=== PATIENT | female | born 1995 | race Caucasian/White ===

== ENCOUNTER 2023-04-13 09:18 | Emergency (ER) | payer MEDICAID, SELFPAY ==
[2023-04-13 09:20] VITALS: BP 134/85; PULSE 95; RESP 16; TEMP 36.6; O2SAT 98; BMI 23.3
--- NOTE | 2023-04-13 09:31 | EKG12_ITS ---
Test Reason : SYNCOPE Blood Pressure : / mmHG Vent. Rate : 081 BPM Atrial Rate : 081 BPM P-R Int : 118 ms QRS Dur : 088 ms QT Int : 374 ms P-R-T Axes : 079 080 064 degrees QTc Int : 434 ms Normal sinus rhythm Normal ECG Confirmed by BLAKE SINGH, NAKUL ([id number]), supervising film or videotape editor HOUSTON LEE ([id number]) on 04/18/2023 8:16:07 AM Referred By: Confirmed By:MASOUD LOZANO MD
--- NOTE | 2023-04-13 09:35 | EX.ED.DYSGE1 ---
HPI History of Present Illness Chief Complaint: Syncope Informant: patient and spouse/S.O. Narrative Narrative: ED per private vehicle with significant other syncopal episode occurring 5:30 AM this morning. She got out bed felt lightheaded and passed out. There is no chest pains. She vomited twice since. No current nausea. No recent diarrhea. Last menstrual period was ago. Similar symptoms she found she was anemic when she was in high school. She was on iron supplements however stopped taking them due to side effects. No bloody stools. Denies urinary symptoms. Denies recent illness or cough. Prior similar symptoms: Yes PFSH [facility] Medical History (Updated 04/13/23 @ 10:[address] Adrien Lau DO) Anxiety PTSD (post-traumatic stress disorder) Home Medications ferrous sulfate 325 mg (65 mg iron) tablet 325 mg PO DAILY #30 tabs 04/13/23 [Rx Last Taken Unknown] ondansetron 4 mg disintegrating tablet 4 mg PO Q8H PRN PRN Nausea #10 tabs 04/13/23 [Rx Last Taken Unknown] Allergy/AdvReac Type Severity Reaction Status Date / Time MUSHROOMS Allergy Severe Anaphylaxis Uncoded 04/13/23 09:22 Social History Smoking Status: Never smoker ROS ROS ED Constitutional Constitutional ED: Denies chills, fever(s) or sweats Eyes Eyes: Denies change in vision ENT ENT ED: Denies dysphagia or sore throat Cardiovascular Cardiovascular: Reports other Details: syncope ; Denies chest pain, leg edema, palpitations or racing heartbeat Respiratory/Chest Respiratory/Chest: Denies cough, dyspnea or dyspnea on exertion Gastrointestinal Gastrointestinal: Denies abdominal pain, diarrhea, nausea or vomiting Genitourinary Genitourinary ED: Denies dysuria, hematuria or urinary frequency Musculoskeletal Musculoskeletal: Denies back pain, extremity pain or neck pain Integumentary Denies rash or wounds Neurologic Neurologic: Denies headache(s), paresthesias or weakness EXAM Physical Exam Const Vital Signs: 04/13/23 09:20 Temperature 97.9 F Temperature Source Temporal Pulse Rate 95 Respiratory Rate 16 Blood Pressure 134/85 H Blood Pressure Mean 101 Pulse Ox 98 Oxygen Delivery Method Room Air Positive well nourished and well developed General Appearance ED: well developed and NAD HEENT Reports moist mucous membranes normocephalic and atraumatic Eyes PERRL, EOMs intact bilaterally and conjunctivae normal General Eye ED: Yes normal appearance of both eyes Neck no lymphadenopathy and supple General: Negative for tenderness Chest Wall Chest: Negative for tenderness Resp normal respiratory effort and normal air movement Effort and Inspection: symmetric chest movement; Negative for respiratory distress Cardio regular rate, regular rhythm and no murmurs Peripheral Pulses: pulses 2+ throughout GI normal to inspection, nondistended, normoactive bowel sounds and non-tender Palpation: Negative for guarding or rebound tenderness present Back/Spine no CVA tenderness and no thoracic nor lumbar tenderness Extremity normal to inspection General Extremety ED: Negative for edema or tenderness General Extremity: Negative for edema Neuro oriented x3 and no sensory deficits noted Sensorium / Orientation: awake and alert Skin no rashes or lesions noted and no wounds MDM MDM MDM Narrative Medical decision making narrative: Interventions / MDM: Differential diagnosis: Syncope, nausea and vomiting, electrolyte abnormalities, anemia Diagnosis considered but do not suspect: Pulmonary embolism, however PERC criteria negative. My EKG interpretation: Sinus rate of 81, no ST or T wave changes, QTc 434. Imaging independently reviewed and interpreted by myself: N/A External documents reviewed: N/A Test considered but not ordered:N/A ED course: Patient no focal neurologic deficits. Vital signs stable. No significant pallor on exam. History of anemia currently not on iron. EKG sinus rhythm no acute findings. Basic laboratories obtained, IV fluids due to recent vomiting. Laboratory studies hemoglobin 10.1 slightly low MCV consistent with her iron deficiency history. Electrolytes are normal. hCG negative. Stable on reevaluation. No current PCP. Swelling restart iron supplements. Prescription for month supply for daily. Prescription for Zofran to use as needed. Outpatient follow-up given. Return precautions. All questions were answered. Re-evaluation: stable Disposition discussed with patient/family/significant other: Patient and significant other Case discussed with consulting clinician: N/A This note was generated with [employer] dictation software. It may contain incorrect words, spelling, and punctuation that were not noted in checking the note before signing. Lab Data Attestation: I reviewed the patient's lab results. Labs: Laboratory Results - last 24 hr 04/13/23 09:35 WBC 5.5 RBC 4.44 Hgb 10.1 L Hct 33.1 L MCV 74.5 L MCH 22.7 L MCHC 30.5 L RDW Std Deviation 48.4 H RDW Coeff of Edgar 18.1 H Plt Count 216 MPV 10.7 Immature Gran % (Auto) 0.400 Neut % (Auto) 63.0 Lymph % (Auto) 25.0 Shelby % (Auto) 7.2 Eos % (Auto) 3.3 Baso % (Auto) 1.1 H Absolute Neuts (auto) 3.4 Absolute Lymphs (auto) 1.36 Nucleated RBC % 0 Sodium 139 Potassium 4.1 Chloride 105 Carbon Dioxide 28.0 Anion Gap 6 BUN 14 Creatinine 0.86 Estim Creat Clear Calc 85.60 Est GFR (MDRD) Af Amer 102 Est GFR (MDRD) Non-Af 85 BUN/Creatinine Ratio 16.3 Glucose 102 Calcium 9.2 Serum , Qual NEGATIVE Discharge Plan Triage Chief Complaint: Syncope ED Provider: Adrien Lau Dx/Rx/DC Orders Clinical Impression: Anemia, Syncope, Nausea & vomiting Instructions: Anemia, Causes of Syncope, ED Vomiting (Adult) Prescriptions: New ondansetron [ondansetron] 4 mg tablet,disintegrating 4 mg PO Q8H PRN PRN (Reason: Nausea) Qty: 10 0RF ferrous sulfate 325 mg (65 mg iron) tablet 325 mg PO DAILY Qty: 30 0RF Stand Alone Forms: ED Work / School Excuse Primary Care Provider: Care Physician,No Primary Referrals: Steph Meza MD [Med Staff - [employer] Supervisor] - 1-2 Weeks Care Physician,No Primary [Primary Care Provider] - Activity Restrictions/Additional Instructions: EKG normal lab work hemoglobin 10.1. Take iron supplements as prescribed. I understand your stools will be black and can cause constipation. Increase your fibers. Drink plenty of fluids. Follow-up was given as an outpatient. Return of any recurrent or worsening symptoms. Disposition Disposition: Home, Self Care
--- NOTE | 2023-04-13 09:38 | NURSING ---
NO OLD EKGS
[2023-04-13] MEDS: 0.9% Normal Saline 1,000 ML 1000 ML IV (09:48)
[2023-04-13 09:50] LABS: Absolute Lymphocyte Count 1.36 X10^3/uL (0.83-4.51); Absolute Neutrophil Count 3.4 X10^3/uL (2.0-7.7); Basophil# 0.06 X10^3/uL; Basophil% 1.1 % (0-1); Eosinophil# 0.18 X10^3/uL; Eosinophils% 3.3 % (0-5); Hematocrit 33.1 % (37-47); Hemoglobin 10.1 g/dL (12.0-15.0); Lymphocyte # 1.36 X10^3/ul (0.83-4.51); Mean Corp Hgb Conc 30.5 g/dL (32-36); Mean Corpuscular Hgb 22.7 pg (27.0-32.0); Mean Corpuscular Volume 74.5 fL (81-99); Mean Platelet Vol. 10.7 fl (6.2-12.0); Monocyte# 0.39 X10^3/uL; Monocyte% 7.2 % (0-10); NRBC Flagged by Analyzer 0 % (0-5); Neutrophil # 3.44 X10^3/uL (2.7-7.7); Platelet Count 216 K/mm3 (150-450); RBC Distribution Width CV 18.1 % (11.6-14.6); RBC Distribution Width SD 48.4 fl (35.1-43.9); Red Blood Count 4.44 M/mm3 (4.2-5.4); White Blood Count 5.5 K/mm3 (4.4-11.0)
[2023-04-13 10:03] LABS: Internal QC Validated? YES +Cl - CLEAR BKGD; Pregnancy, Serum, hCG Quali. NEGATIVE Negative
[2023-04-13 10:04] LABS: Anion Gap 6 (5-15); BUN 14 mg/dL (7-18); BUN/Creat Ratio 16.3 RATIO (10-20); Calcium,Total 9.2 mg/dL (8.5-10.1); Chloride 105 mmol/L (98-107); Creatinine, Serum 0.86 mg/dL (0.55-1.02); EST Glomerular Filtration Rate 85 mL/min (>60); Est Glom Filt Rate - Afr Amer 102 mL/min (>60); Glucose 102 mg/dL (74-106); Potassium 4.1 mmol/L (3.5-5.1); Sodium Level 139 mmol/L (136-145)
[2023-04-13 10:48] VITALS: BP 122/79; PULSE 88; RESP 16; O2SAT 99
== END 2023-04-13 10:49 | disposition home or self-care (01) ==
PROVIDERS: Emergency Provider Emergency Medicine; Visit Provider Emergency Medicine
DX: D64.9 Anemia, unspecified (principal); R55 Syncope and collapse; R11.2 Nausea with vomiting, unspecified
CPT/HCPCS: 80048; 84703; 85025; 93005; 96360; 99284; J7030

== ENCOUNTER 2023-12-13 22:22 | Emergency (ER) | payer SELFPAY ==
[2023-12-13 22:23] VITALS: BP 128/81; PULSE 86; RESP 16; TEMP 36.1; O2SAT 99; BMI 21.1
--- NOTE | 2023-12-13 23:59 | EX.ED.DYSGE1 ---
HPI History of Present Illness Chief Complaint: Dizziness Informant: patient Narrative Narrative: 28-year-old female presenting to the emergency room with a complaint of dizziness. Patient states for the past 2 days she feels like she intermittently gets hit in the back of her head. She states that she feels spinning-like sensation when she moves her eyes. She states that the outside world is not spinning but she is. She states its seems like it spinning horizontally. 1 month ago she stopped taking sertraline abruptly due to monetary reasons. She states she does not have a primary care doctor. She states that she was getting sertraline prescribed by In [place] but she does not remember. She states that doctor moved to another town to start a practice and she was assigned a new doctor but does not know that 1 is. She states that she has had some weight gain over the past month. She notes that she has not been sleeping very well. She reports I am so sorry I am trying to stay awake for you guys. Patient denies any bowel or bladder issues. She denies any syncope. No recent URI symptoms. No fevers. No neurologic deficits for the patient. [facility] Medical History Anxiety PTSD (post-traumatic stress disorder) Home Medications ferrous sulfate 325 mg (65 mg iron) tablet 325 mg PO DAILY #30 tabs 04/13/23 [Rx Last Taken Unknown] ondansetron 4 mg disintegrating tablet 4 mg PO Q8H PRN PRN Nausea #10 tabs 04/13/23 [Rx Last Taken Unknown] Allergy/AdvReac Type Severity Reaction Status Date / Time mushroom Allergy Severe Anaphylaxis Verified 12/13/23 22:22 Social History Smoking Status: Never smoker ROS ROS ED Constitutional Constitutional ED: Denies chills, fever(s) or weight loss Eyes Eyes: Denies change in vision or diplopia ENT ENT ED: Denies ear pain, rhinorrhea or sore throat Cardiovascular Cardiovascular: Denies chest pain, orthopnea, palpitations or racing heartbeat Respiratory/Chest Respiratory/Chest: Denies cough, dyspnea or orthopnea Gastrointestinal Gastrointestinal: Denies abdominal pain, diarrhea, nausea or vomiting Genitourinary Genitourinary ED: Denies dysuria, hematuria or urinary frequency Musculoskeletal Musculoskeletal: Denies arthralgias or myalgias Integumentary Denies abscess or rash Neurologic Neurologic: Reports other Details: See history of present illness ; Denies headache(s) or weakness Psychiatric Psychiatric: Denies anxiety, depression, suicidal ideation or suicidal thoughts Endocrine Endocrinology: Denies polydipsia, polyphagia or polyuria Allergic/Immunologic Allergic/Immunologic ED: Denies mouth swelling, tongue swelling or urticaria EXAM Physical Exam Const Vital Signs: 12/13/23 22:23 12/14/23 00:18 12/14/23 00:22 Temperature 97 F L Temperature Source Temporal Pulse Rate 86 82 Pulse Rate [Lying] Pulse Rate [Sitting (for 1 minute prior to obtaining)] Pulse Rate [Standing (for 1 minute prior to obtaining)] Respiratory Rate 16 16 Respiratory Effort Normal Respiratory Pattern Normal Blood Pressure 128/81 H 110/80 Blood Pressure [Lying] Blood Pressure [Sitting (for 1 minute prior to obtaining)] Blood Pressure [Standing (for 1 minute prior to obtaining)] Blood Pressure Mean 96 90 Blood Pressure Mean [Lying] Blood Pressure Mean [Sitting (for 1 minute prior to obtaining)] Blood Pressure Mean [Standing (for 1 minute prior to obtaining)] Pulse Ox 99 100 Oxygen Delivery Method Room Air 12/14/23 00:51 12/14/23 01:21 Temperature 98.7 F Temperature Source Pulse Rate 87 Pulse Rate [Lying] 86 Pulse Rate [Sitting (for 1 minute prior to obtaining)] 89 Pulse Rate [Standing (for 1 minute prior to obtaining)] 84 Respiratory Rate 16 Respiratory Effort Respiratory Pattern Blood Pressure 101/83 H Blood Pressure [Lying] 112/70 Blood Pressure [Sitting (for 1 minute prior to obtaining)] 111/70 Blood Pressure [Standing (for 1 minute prior to obtaining)] 112/77 Blood Pressure Mean 89 Blood Pressure Mean [Lying] 84 Blood Pressure Mean [Sitting (for 1 minute prior to obtaining)] 83 Blood Pressure Mean [Standing (for 1 minute prior to obtaining)] 88 Pulse Ox 100 Oxygen Delivery Method Positive well nourished and well developed General Appearance ED: well developed HEENT Reports normocephalic, head/scalp atraumatic and moist mucous membranes Eyes PERRL and EOMs intact bilaterally Neck no lymphadenopathy, supple and no JVD Resp normal respiratory effort and clear to auscultation bilaterally Cardio regular rate, regular rhythm and no murmurs GI normal to inspection, nondistended, normoactive bowel sounds and non-tender Palpation: soft Back/Spine no CVA tenderness and normal ROM Extremity normal to inspection General Extremety ED: Negative for edema General Extremity: Negative for edema Neuro oriented x3 and CN's II-XII intact bilaterally Sensorium / Orientation: alert Motor Exam: strength 5/5 throughout Psych mental status grossly normal Mood & Affect: Negative for depressed or tearful Skin no rashes or lesions noted and no wounds MDM MDM MDM Narrative Medical decision making narrative: Differential diagnosis includes vertigo, URI, serous otitis, hypovolemia/anemia, electrolyte imbalance, , intracranial hemorrhage, intracranial mass. I doubt that this patient needs an emergent CT based on her normal neurologic examination. Her hemoglobin is 9.9 with a MCV of 79.4. She has had anemia in the past. She has not had this fully worked up. She will be advised to follow-up with primary care. CMP is otherwise negative. test is negative. I think the patient can be discharged home. I do recommend following back up with her doctor to get back on sertraline. I recommend establishing primary care either here in [place] or in [place] where she lives. Patient is not orthostatic positive. She is comfortable with this plan History & Record Review Discussion w/independent historian: Patient Lab Data Attestation: I reviewed the patient's lab results. Labs: Laboratory Results - last 24 hr 12/14/23 00:15 WBC 3.9 L RBC 4.13 L Hgb 9.9 L Hct 32.8 L MCV 79.4 L MCH 24.0 L MCHC 30.2 L RDW Std Deviation 49.1 H RDW Coeff of Edgar 17.2 H Plt Count 192 MPV 11.5 Immature Gran % (Auto) 1.000 H Neut % (Auto) 33.9 L Lymph % (Auto) 48.2 H [place] % (Auto) 11.0 H Eos % (Auto) 4.9 Baso % (Auto) 1.0 Absolute Neuts (auto) 1.3 L Absolute Lymphs (auto) 1.88 Nucleated RBC % 0 Sodium 140 Potassium 3.8 Chloride 110 H Carbon Dioxide 26.0 Anion Gap 4 L BUN 15 Creatinine 0.61 Estim Creat Clear Calc 119.63 Est GFR (MDRD) Af Amer 150 Est GFR (MDRD) Non-Af 124 BUN/Creatinine Ratio 24.5 H Glucose 90 Calcium 8.7 Total Bilirubin 0.30 AST 24 ALT 16 Alkaline Phosphatase 100 Total Protein 6.9 Albumin 3.5 Globulin 3.4 Albumin/Globulin Ratio 1.0 Serum , Qual NEGATIVE Discharge Plan Triage Chief Complaint: Dizziness ED Provider: Osiel Pulliam Dx/Rx/DC Orders Clinical Impression: Dizziness, Anemia Instructions: Anemia, ED Dizziness, Uncertain Cause Prescriptions: No Action ondansetron [ondansetron] 4 mg tablet,disintegrating 4 mg PO Q8H PRN PRN (Reason: Nausea) Qty: 10 0RF ferrous sulfate 325 mg (65 mg iron) tablet 325 mg PO DAILY Qty: 30 0RF Primary Care Provider: Care Physician,No Primary Referrals: Glen Reed MD [Med Staff - Apprentice Stylist] - 1 Week (for local primary care) Care Physician,No Primary [Primary Care Provider] - Disposition Disposition: Home, Self Care Discharge Date/Time: 12/14/23 01:22
--- NOTE | 2023-12-14 00:20 | ED.RN ---
pt c/o of dizziness in my head for two days. pt states she has flashes of hot and cold kind of like menopause and there is also a possibility that I could be ...my pants don't fit like they used to
[2023-12-14 00:22] VITALS: BP 110/80; PULSE 82; RESP 16; O2SAT 100
[2023-12-14 00:33] LABS: Absolute Lymphocyte Count 1.88 X10^3/uL (0.83-4.51); Absolute Neutrophil Count 1.3 X10^3/uL (2.0-7.7); Basophil# 0.04 X10^3/uL; Eosinophil# 0.19 X10^3/uL; Eosinophils% 4.9 % (0-5); Hematocrit 32.8 % (37-47); Hemoglobin 9.9 g/dL (12.0-15.0); Lymphocyte # 1.88 X10^3/ul (0.83-4.51); Lymphocyte % 48.2 % (19-41); Mean Corp Hgb Conc 30.2 g/dL (32-36); Mean Corpuscular Volume 79.4 fL (81-99); Mean Platelet Vol. 11.5 fl (6.2-12.0); Monocyte# 0.43 X10^3/uL; NRBC Flagged by Analyzer 0 % (0-5); Neutrophil # 1.32 X10^3/uL (2.7-7.7); Neutrophil % 33.9 % (47-70); Platelet Count 192 K/mm3 (150-450); RBC Distribution Width CV 17.2 % (11.6-14.6); RBC Distribution Width SD 49.1 fl (35.1-43.9); Red Blood Count 4.13 M/mm3 (4.2-5.4); White Blood Count 3.9 K/mm3 (4.4-11.0)
[2023-12-14 00:39] LABS: Internal QC Validated? YES +Cl - CLEAR BKGD; Pregnancy, Serum, hCG Quali. NEGATIVE Negative
[2023-12-14 00:47] LABS: AST(SGOT) 24 U/L (15-37); Alanine Aminotransfer ALT/SGPT 16 U/L (13-56); Albumin, Serum 3.5 g/dL (3.2-5.0); Alkaline Phosphatase 100 U/L (45-117); Anion Gap 4 (5-15); BUN 15 mg/dL (7-18); BUN/Creat Ratio 24.5 RATIO (10-20); Calcium,Total 8.7 mg/dL (8.5-10.1); Chloride 110 mmol/L (98-107); Creatinine, Serum 0.61 mg/dL (0.55-1.02); EST Glomerular Filtration Rate 124 mL/min (>60); Est Glom Filt Rate - Afr Amer 150 mL/min (>60); Estimated Creatinine Clearance 119.63 ml/min; Globulin 3.4 g/dL (2.2-4.2); Glucose 90 mg/dL (74-106); Potassium 3.8 mmol/L (3.5-5.1); Protein, Total 6.9 g/dL (6.4-8.2); Sodium Level 140 mmol/L (136-145)
[2023-12-14 00:51] VITALS: BP 111/70; BP 112/70; BP 112/77; PULSE 84; PULSE 86; PULSE 89
[2023-12-14 01:21] VITALS: BP 101/83; PULSE 87; RESP 16; TEMP 37.1; O2SAT 100
== END 2023-12-14 01:22 | disposition home or self-care (01) ==
PROVIDERS: Emergency Provider Emergency Medicine; Visit Provider Emergency Medicine
DX: D64.9 Anemia, unspecified (principal); R42 Dizziness and giddiness
CPT/HCPCS: 80053; 84703; 85025; 99284; A4216

== ENCOUNTER 2024-05-23 23:46 | Emergency (ER) | payer SELFPAY ==
[2024-05-23 23:47] VITALS: BP 114/85; PULSE 89; RESP 18; TEMP 36.8; O2SAT 96; BMI 22.5
--- NOTE | 2024-05-24 00:45 | EDS_ITS ---
HPI HPI - URI History of Present Illness Chief Complaint: Cold Sx Detail of Chief Complaint: Nasal drainage. Mild sore throat. Informant: patient Onset/Context/Timing Onset: Days Context: Gradual Onset Timing: Continuous Current Severity: Mild Maximum Severity: Mild Associated Symptoms Associated Symptoms: Positive for Nasal Congestion; Negative for Headache, Sinus Pressure, Myalgias, Nausea, Vomiting, Shortness of Breath, Chest Pain, Nonproductive cough, Hemoptysis or Productive Cough Narrative Narrative: 29-year-old female history of PTSD and anxiety. Says she has had mild sore throat and earache with nasal congestion last 3 days. Prior similar symptoms: Yes Recent Illness/Hospitalization: No ROS ROS ED ROS Narrative Nasal congestion. Earache. Mild sore throat. Constitutional Constitutional ED: Denies chills or fever(s) Eyes Eyes: Denies blurry vision ENT ENT ED: Reports ear pain, rhinorrhea and sore throat Cardiovascular Cardiovascular: Denies chest pain Respiratory/Chest Respiratory/Chest: Denies cough Gastrointestinal Gastrointestinal: Denies abdominal pain Genitourinary Genitourinary ED: Denies dysuria Musculoskeletal Musculoskeletal: Denies arthralgias Integumentary Denies abscess Neurologic Neurologic: Denies headache(s) Psychiatric Psychiatric: Denies anxiety Endocrine Endocrinology: Denies cold intolerance Hematologic/Lymphatic Hematologic/Lymphatic: Denies easy bleeding Allergic/Immunologic Allergic/Immunologic ED: Denies mouth swelling PFSH PFSH Medical History PTSD (post-traumatic stress disorder) Anxiety Home Medications ?Medication ?Instructions ?Recorded ?Last Taken ?Type ferrous sulfate 325 mg (65 mg 325 mg PO DAILY #30 tabs 04/13/23 Unknown Rx iron) tablet ondansetron 4 mg disintegrating 4 mg PO Q8H PRN PRN Nausea #10 tabs 04/13/23 Unknown Rx tablet Allergy/AdvReac Type Severity Reaction Status Date / Time mushroom Allergy Severe Anaphylaxis Verified 05/23/24 23:47 Social History Smoking Status: Never smoker EXAM Physical Exam Narrative Exam Narrative: Well-appearing 29-year-old female. Vital signs stable afebrile. Pulse ox 96% on room air no hypoxia. H EENT exam posterior pharynx normal. No erythema or exudate. No trouble swallowing or breathing. Currently no nasal drainage. Sinuses nontender. Right TM and canal normal. Left small amount of wax. No infection. Neck nontender no lymphadenopathy. Trachea midline. Lungs clear to auscultation. Heart regular rhythm rate about 90 no murmur. Chest wall ribs nontender. Abdomen soft nontender. Moving all 4 extremities. No edema. Skin no rashes. Awake and alert no focal motor deficits. Back unremarkable. Const Vital Signs: 05/23/24 23:47 Temperature 98.3 F Temperature Source Oral Pulse Rate 89 Respiratory Rate 18 Blood Pressure 114/85 H Blood Pressure Mean 94 Pulse Ox 96 Oxygen Delivery Method Room Air Positive well nourished and well developed; Negative for obese, cachectic or contractures Constitutional Narrative: Left ear canal wax. General Appearance ED: well developed and NAD; Negative for cachectic, contractures, cyanotic, diaphoretic or pallor Nutritional Appearance: Negative for cachectic or obese HEENT Reports moist mucous membranes normocephalic Face and Sinus: Negative for sinus tenderness, maxillary instability or facial tenderness Teeth and Gingiva: Negative for caries Throat: posterior oropharynx normal Eyes PERRL and EOMs intact bilaterally General Eye ED: Negative for pale conjunctiva or scleral icterus Neck no lymphadenopathy, supple, no meningeal signs and no JVD General: Negative for anterior neck swelling or lymphadenopathy Resp normal respiratory effort and clear to auscultation bilaterally Cardio S1 normal heart sound, S2 normal heart sound and no murmurs Rate: regular rate Rhythm: regular rhythm GI non-tender, non-distended and no masses Inspection: Negative for abdominal distention Auscultation: normoactive bowel sounds Palpation: soft; Negative for tender or guarding Back/Spine no CVA tenderness and normal ROM General Back: Negative for CVA tenderness Cervical Spine: Negative for cervical spine tenderness Thoracic Spine / Upper Back: Negative for thoracic spinal tenderness Lumbar Spine / Lower Back: Negative for lumbar spinal tenderness Extremity normal to inspection and full ROM General Extremety ED: Negative for cyanosis, tenderness or other findings General Extremity: Negative for cyanosis or other findings Neuro oriented x3 and CN's II-XII intact bilaterally Sensorium / Orientation: alert, oriented to person, oriented to place and oriented to time; Negative for orientation impaired or lethargic Motor Exam: strength 5/5 throughout; Negative for general weakness or strength abnormal Psych mental status grossly normal Attitude: No agitated Mood & Affect: Negative for depressed, anxious or tearful Skin General Skin Exam: Negative for jaundice or pallor Lesions: no lesions Rashes: no rashes MDM MDM MDM Narrative Medical decision making narrative: 29-year-old female exam benign. Viral URI. No signs of a bacterial infection does not need antibiotics. There is a small amount of extra wax in left ear we discussed Cerumenex drops if not improving. Discharge Plan Triage Chief Complaint: Cold Sx ED Provider: Ivan Butler Dx/Rx/DC Orders Clinical Impression: Viral URI, Excess ear wax Instructions: ED URI, Viral, No Abx (Adult) Prescriptions: No Action ondansetron [ondansetron] 4 mg tablet,disintegrating 4 mg PO Q8H PRN PRN (Reason: Nausea) Qty: 10 0RF ferrous sulfate 325 mg (65 mg iron) tablet 325 mg PO DAILY Qty: 30 0RF Primary Care Provider: Care Physician,No Primary Referrals: Kyrie Escamilla MD [Med Staff - Physical Therapy Director] - 1 Week if not improving Care Physician,No Primary [Primary Care Provider] - Activity Restrictions/Additional Instructions: Viral illness should progressively improve. He had little bit of extra earwax in the left. If it is not improving you can buy [id number] Cerumenex which are eardrops that will dry it out and help it come out. Print Language: Vietnamese
== END 2024-05-24 00:53 | disposition home or self-care (01) ==
LOC: ED 05-24 00:52
PROVIDERS: Emergency Provider Emergency Medicine; Visit Provider Emergency Medicine
DX: J06.9 Acute upper respiratory infection, unspecified (principal); H61.22 Impacted cerumen, left ear; F41.9 Anxiety disorder, unspecified
CPT/HCPCS: 99282

== ENCOUNTER 2025-02-27 11:03 | Emergency (ER) | payer MEDICAID, SELFPAY ==
[2025-02-27 11:04] VITALS: BP 111/78; PULSE 89; RESP 18; TEMP 36.6; O2SAT 99; BMI 20.7
[2025-02-27] MEDS: Acetaminophen 500 MG Tablet 1000 MG PO (12:57)
--- NOTE | 2025-02-27 13:02 | EX.ED.DYSGE1 ---
HPI History of Present Illness Chief Complaint: General Illness Narrative Narrative: Patient is a 29-year-old female with no known significant past medical history who presented to the emergency department with concern for heat exhaustion. Patient states that she was at work today and developed lightheadedness, chills felt very thirsty and overall was not feeling well. Patient states that she went to urgent care they were concerned that she was having heat exhaustion therefore they referred her to the emergency department to be further evaluated. Patient states that she feels well has a mild headache. When inquiring about the dizziness that is documented in the triage note she states that she was not dizzy she was lightheaded. [facility] Medical History PTSD (post-traumatic stress disorder) Anxiety Home Medications ?Medication ?Instructions ?Recorded ?Last Taken ?Type ferrous sulfate 325 mg (65 mg 325 mg PO DAILY #30 tabs 04/13/23 Unknown Rx iron) tablet ondansetron 4 mg disintegrating 4 mg PO Q8H PRN PRN Nausea #10 tabs 04/13/23 Unknown Rx tablet ondansetron 4 mg disintegrating 4 mg PO Q6H PRN nausea and 02/27/25 Unknown Rx tablet vomiting #20 tabs Allergy/AdvReac Type Severity Reaction Status Date / Time mushroom Allergy Severe Anaphylaxis Verified 02/27/25 11:04 Social History Smoking Status: Never smoker ROS ROS ED ROS Narrative Constitutional: Complains of headache as noted above denies any dizziness, fevers or chills Eyes: Denies change in vision double vision blurry Cardiovascular: Denies chest pain Respiratory: No shortness of breath Abdomen: Denies nausea vomit diarrhea : Denies urinary symptoms Neurological: Denies numbness, wheeze, tingling Musculoskeletal: Denies back pain Skin: Denies rashes or lesions EXAM Physical Exam Narrative Exam Narrative: General: Patient sitting in hallway chair did not appear to be in any acute distress Head: Atraumatic, normocephalic Eyes: PERRL bilaterally, EOMI biotic no conjunctival injection noted Neck: Soft, supple, trachea midline Cardiovascular: Regular in rhythm Respiratory: Clear to auscultation bilaterally Abdomen: Soft, nondistended, nontender to palpation Extremities: +5/5 strength noted in the bilateral upper and lower extremities, radial pulses +2/4 in the bilateral extremities Neurological: Patient follow commands knew that she was at [facility] year is 2024. NIH of 0 GCS 15. Patient pleated finger-nose testing bilaterally finding difficulty Skin: Warm, dry, tact no rashes or lesions noted Const Vital Signs: 02/27/25 11:04 02/27/25 12:58 02/27/25 13:03 Temperature 98 F Temperature Source Oral Pulse Rate 89 90 Respiratory Rate 18 18 Respiratory Effort Normal Non-Labored Respiratory Pattern Normal Blood Pressure 111/78 115/85 H Blood Pressure Mean 89 95 Pulse Ox 99 100 Oxygen Delivery Method Room Air Room Air MDM MDM MDM Narrative Medical decision making narrative: Patient is a 29-year-old female who presented to the emergency department with concern for heat exhaustion. On the differential diagnose includes but not limited to dehydration, cluster headache, migraine headache. Patient is once again nontoxic in appearance resting comfortably in chair in the hallway bed we will give her a gram of Tylenol we will give her oral challenge and reevaluate her. She states that she is feeling better. Her temperature was normal here in the emergency department with normal vital signs overall. On reevaluation the patient she is feeling much better and she would like to go home at this point time. She was advised to ensure that she is adequately staying hydrated. She was advised to return with worsening symptoms or concerns. She is agreeable to plan all questions were answered she was discharged home in stable condition. Patient was advised to follow-up with a doctor that she was referred to as well. Lab Data Labs: Laboratory Results - last 24 hr 02/27/25 13:10 POC Glucose 69 L Discharge Plan Triage Chief Complaint: General Illness ED Provider: Castillo Barnett Dx/Rx/DC Orders Clinical Impression: Dehydration, Headache Prescriptions: New ondansetron 4 mg tablet,disintegrating 4 mg PO Q6H PRN (Reason: nausea and vomiting) Qty: 20 0RF No Action ondansetron [ondansetron] 4 mg tablet,disintegrating 4 mg PO Q8H PRN PRN (Reason: Nausea) Qty: 10 0RF ferrous sulfate 325 mg (65 mg iron) tablet 325 mg PO DAILY Qty: 30 0RF Primary Care Provider: Care Physician,No Primary Referrals: Care Physician,No Primary [Primary Care Provider] - Maria Gregory [facility], MANAGEMENT ANALYST-C [[facility]] - Activity Restrictions/Additional Instructions: Rotate Tylenol and ibuprofen [id number] if you are having headaches when you do this you can take something every 3 hours max dose of Tylenol in 24 hours 4000 mg. Max dose of ibuprofen 24 hours 3200 mg. Ensure that you are hydrating orally with plenty of fluids such as water, Gatorade/Powerade, Pedialyte etc. Follow-up the doctor that you referred to and return with any other concerns. Print Language: Mongolian Disposition Disposition: Home, Self Care
[2025-02-27 13:03] VITALS: BP 115/85; PULSE 90; RESP 18; O2SAT 100
[2025-02-27] MEDS: Ondansetron ODT 4 MG Tablet PO (13:16)
[2025-02-27 13:27] LABS: Bedside Glucose 69 mg/dL (74-106)
[2025-02-27 14:28] VITALS: BP 109/64; PULSE 78; RESP 18; TEMP 36.3; O2SAT 100
== END 2025-02-27 14:32 | disposition home or self-care (01) ==
PROVIDERS: Emergency Provider Emergency Medicine; Visit Provider Emergency Medicine
DX: E86.0 Dehydration (principal); R51.9 Headache, unspecified; R42 Dizziness and giddiness; Z79.899 Other long term (current) drug therapy
CPT/HCPCS: 82962; 99282

== ENCOUNTER 2025-05-21 19:24 | Emergency (ER) | payer MEDICAID, SELFPAY ==
[2025-05-21 19:24] VITALS: BP 107/77; PULSE 79; RESP 16; TEMP 36.8; O2SAT 98; BMI 20.7
--- NOTE | 2025-05-21 19:48 | ED.VIS.FEGU ---
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 Patient states that her last menstrual period was 8/4. States it was normal for her. Reports today that her boyfriend told her that she was acting hormonal and she was eating pickles which she has had with prior pregnancies so she decided to take a test. States she had 5 positive test and then 3 negative ones. States that she just needs to get on it if she is . States she had some light spotting yesterday but this is no longer present. Denies abdominal pain, fever, chills, nausea, vomiting. Denies vaginal discharge or pain. [facility] Medical History PTSD (post-traumatic stress disorder) Anxiety Home Medications ?Medication ?Instructions ?Recorded ?Last Taken ?Type NK 05/21/25 Unknown History Allergy/AdvReac Type Severity Reaction Status Date / Time mushroom Allergy Severe Anaphylaxis Verified 05/21/25 19:26 Family History no significant family his Social History Smoking Status: Never smoker ROS ROS ED ROS Narrative see HPI EXAM Physical Exam Narrative Exam Narrative: Vital signs: Reviewed General: Alert and orientedx3. No acute distress HEENT: Head is normocephalic and atraumatic, sinuses nontender, pupils equal round and reactive. Nares are patent. Oropharynx and throat exams normal. Neck: Supple without lymphadenopathy nontender Cardiovascular: Regular rate and rhythm, no murmurs. No rubs or gallops. Normal S1 and S2 Respiratory: Clear to auscultation bilaterally. No wheezes, rales, rhonchi Abdominal: Soft and nontender. Normal bowel sounds. No guarding or rebound. Nonsurgical abdomen Extremities: No tenderness. No bruising. Normal range of motion. Normal sensation. Skin: No rash or redness. The rest of the physical exam is unremarkable Const Vital Signs: 05/21/25 19:24 05/21/25 20:22 Temperature 98.3 F 98.3 F Temperature Source Oral Pulse Rate 79 74 Respiratory Rate 16 16 Blood Pressure 107/77 102/69 Blood Pressure Mean 87 80 Pulse Ox 98 98 Oxygen Delivery Method Room Air MDM MDM MDM Narrative Medical decision making narrative: Patient is a 30-year-old female presenting to the emergency department for a test. Patient was seen and examined. Vitals are stable. Patient resting in bed comfortably in no acute distress. Urine test ordered. Patient has no abdominal pain, nausea, vomiting, fevers. She has no active vaginal bleeding, discharge, pain, concern for STDs. Urine was negative. Patient updated on the negative result. Patient discharged from the Emergency Department. I do not feel that the patient's evaluation reveals any acute reason for admission at this time. I instructed them to either follow-up with their primary care physician or promptly return to the Emergency Department for reevaluation should symptoms worsen or new symptoms develop. I explained what symptoms would indicate the need to return to the emergency department. Shared decision making was used. The patient voiced understanding of the treatment plan and is agreeable with it. Clinical impression: Encounter for test History & Record Review Discussion w/independent historian: Patient Lab Data Attestation: I reviewed the patient's lab results. Labs: Laboratory Results - last 24 hr 05/21/25 19:55 Urine Test Negative Discharge Plan Triage Chief Complaint: ED Provider: Nataliia Galeas Dx/Rx/DC Orders Clinical Impression: Positive home test Prescriptions: No Action NK Primary Care Provider: Care Physician,No Primary Referrals: Theresa Moreira MD [Med Staff - Mandarin Tutor] - 2 Days Care Physician,No Primary [Primary Care Provider] - Activity Restrictions/Additional Instructions: Your test here was negative. Your evaluation in the Emergency Department did not reveal any acute reason for admission. However, I want to emphasize that you may be early in the course of a disease process or illness even if it is not present. For this reason you should follow-up within 24 hours for reevaluation with either your primary care physician or if necessary back here in the Emergency Department. You should return to the Emergency Department immediately if your symptoms worsen or new symptoms develop. Print Language: Comoran Disposition Disposition: Home, Self Care Discharge Date/Time: 05/21/25 20:23
[2025-05-21 20:16] LABS: Internal QC Validated? YES +Cl - CLEAR BKGD; Pregnancy, Urine Negative Negative; Record Kit Lot#,Urine Preg 0000964736
[2025-05-21 20:22] VITALS: BP 102/69; PULSE 74; RESP 16; TEMP 36.8; O2SAT 98
== END 2025-05-21 20:23 | disposition home or self-care (01) ==
PROVIDERS: Emergency Provider Student in an Organized Health Care Education/Training Program; Visit Provider Student in an Organized Health Care Education/Training Program
DX: Z32.01 Encounter for pregnancy test, result positive (principal)
CPT/HCPCS: 81025; 99282